=== PATIENT | male | born 1950 | race Caucasian/White ===

== ENCOUNTER 2023-09-01 09:30 | Inpatient (IN) ==
[2023-09-01 10:13] LABS: Basophils # (auto) 0.05 K/uL (0.00-0.20); Basophils % (auto) 0.6 %; Eosinophils % (auto) 4.5 %; Hemoglobin 14.4 g/dl (14.0-18.0); Immature Granulocytes # (auto) 0.02 K/uL (0.01-0.20); Immature Granulocytes % (auto) 0.2 %; Lymphocytes % (auto) 35.1 %; Mean Corpuscular Hemoglobin 28.9 pg (25.0-34.0); Mean Corpuscular Hgb Conc 33.5 g/dL (32.0-36.0); Mean Corpuscular Volume 86.3 fL (80.0-100.0); Mean Platelet Volume 9.8 fL (9.4-12.4); Monocytes # (auto) 0.54 K/uL (0.11-0.59); Monocytes % (auto) 6.1 %; Neutrophils # (auto) 4.72 K/uL (1.40-6.50); Neutrophils % (auto) 53.5 %; Platelet Count 186 K/uL (130-400); RDW Coefficient of Variation 12.9 % (11.5-14.5); RDW Standard Deviation 40.2 fL (36.4-46.3); Red Blood Count 4.98 M/uL (4.70-6.10); White Blood Count 8.83 K/ul (4.8-10.8)
[2023-09-01 10:28] LABS: Albumin Globulin Ratio 1.5 (0.9-2); Albumin Level 4.3 gm/dl (3.4-5.0); BUN Creatinine Ratio 19.6 (10-20); Bilirubin,Total 0.9 mg/dl (0.2-1.0); Calcium 9.6 mg/dl (8.6-10.3); Creatinine Clr Calc Pharmacy 69.1 ml/min; Est GFR (African American) 83.5 ml/min; Est GFR (Non-African American) 72.1 ml/min; Globulin 2.9 gm/dl (2.5-4.0); Potassium 3.6 mmol/L (3.5-5.1); Total Protein 7.2 gm/dl (6.0-8.3)
--- NOTE | 2023-09-01 10:35 | XRay Report ---
SINGLE VIEW CHEST CLINICAL HISTORY: Atypical chest pain FINDINGS: A PA chest radiograph is compared to study dated 02/20/2018. The cardiomediastinal silhouett e is unremarkable noting atherosclerotic calcification of the thoracic aorta. The lungs and pleural s paces are clear. No pneumothorax is seen. The skeletal structures are osteopenic. The bony thorax is grossly intact. Degenerative change is noted in the shoulders and spine. Cholecystectomy clips are se en in the right upper quadrant. IMPRESSION: No active disease in the chest. ACT 112: Negative or not required by law. Electronically signed by: Benton Schreiber M.D. 09/01/2023 10:34 AM
[2023-09-01 10:37] LABS: Troponin I High Sensitivity 85.8 pg/ml (0-20)
[2023-09-01 10:39] LABS: Partial Thromboplastin Time 28 Seconds (21-31); Prothrombin Time 11.2 Seconds (9.0-12.0)
[2023-09-01] MEDS: ASPIRIN CHEW 324 MG ONE (11:13)
[2023-09-01] MEDS: ASPIRIN CHEW 324 MG PO STA (11:16)
[2023-09-01] MEDS: NITROGLYCERIN SL 0.4 MG/TAB TAB SL STA (11:16)
[2023-09-01] MEDS: NITROGLYCERIN SL 0.4 MG/TAB TAB ONE (11:16)
[2023-09-01] MEDS: SODIUM CHLORIDE 0.9% 1,000 ML IV ONE (11:17)
--- NOTE | 2023-09-01 11:24 | History & Physical Report ---
Date of Service September 01, 2023 Assessment & Plan (1) NSTEMI (non-ST elevated myocardial infarction): Plan: -Admit to the PCU on tele and pulse oximetry -Currently stable, non-toxic appearing, and with mild pain -Presented to the ED with acute onset of left arm pain with radiation to the left chest/substernal region around 0830 this am while cleaning his home -No previous Cardia hx but does have a hx of HTN, hyperlipidemia and 25 pack year smoking hx -Initial high sen trop of 85, initial ECG on arrival with minimal ST depressions in the anterior and AVL leads -Repeat ECG after initial tx in the ED with improved ST depressions -S/P 324 mg Aspirin, 2 SL nitroglycerin tabs, and 1L NSS in the ED. -Will start 1 inch nitro paste with ongoing chest pain -Will start low dose, weight based heparin drip with bolus -Cardiology has been consulted, agrees with current management, will be down to see him shortly >Will likely be taken to the gold leaf laborer within the next few hours -Patient currently getting TTE, will follow results -Will continue to tren high sen trop, 2 hour repeat is in process -Will hod beta stacey at this time as he is currently bradycardic w/hr in the 40-50's -Will start statin this evening -Strict NPO until seen by Cardiology -Heparin drip for DVT PPX -AM CBC, CMP, mag, PT/INR/Fasting lipid panel, A1c (2) Chest pain: Plan: -Likely related to his NSTEMI -No focal findings to suggest musculoskeletal pain -Has not been tachycardic, hypotensive, or hypoxic to suggest PE, will hold off on CTA Chest for now -Continue current management per NSTEMI plan (3) HTN (hypertension): Plan: -Stable -Will hold spironolactone/HCTZ for now -Monitor BP while on nitroglycerin paste (4) Hypothyroidism: Plan: -Continue levothyroxine Plan The patient was discussed with Dr. Mccormick at the time of the admission History of Present Illness Chief Complaint: Left shoulder/chest pain Primary Care Provider: Rakesh Michele MD Ryne is a 73 year old male with a PMH significant for HTN, Hyperlipidemia, previous tobacco abuse, Guillain [place] Syndrome who presented to the [facility] ED on 09/01/23 with complaints of left chest/shoulder pain which began around 0830 this morning. On arrival to the ED the patient was noted to be hypertensive at 162/95 but was otherwise stable. Labs were significant for an initial high sen trop of 85. ECG shows mild ST segment depressions in the anterior leads. Prior to admission the patient was give 324 mg Aspirin and 2 doses of SL nitroglycerin. At the time of the exam the patient was sitting in bed in no acute distress with his bedside. He states that they were cleaning their house this am around 0830 when he developed sudden onset of left UE pain which radiated to the left chest and substernal region. Describes the pain as burning and an 8/10 when it initially started. Pain is currently a 2-3/10 after the second dose of nitroglycerin. Smoked 1PPD for 25 years, quit approximately 30 years ago. Denies alcohol use. Denies previous hx of heart disease but has significant Cardiac hx on both sides of his family. Does not believe that anyone in his family has passes from heart disease before the age of 50. Denies recent fever, chills, SOB, cough, hemoptysis, nausea, vomiting, abd pain, diarrhea, dysuria, hematuria, melena, LE swelling, and recent trauma. Denies previous hx of major bleeding. Is a full code, is his POA. Please refer to Dr Mccormick's attestation for any changes to the treatment plan Allergies Allergy/AdvReac Type Severity Reaction Status Date / Time tapentadol AdvReac Unknown feels hot Verified 01/23/20 08:37 Home Medications Medication Instructions Recorded Confirmed Type cholecalciferol (vitamin D3) 25 0 unit PO DAILY 02/21/18 09/01/23 History mcg (1,000 unit) capsule (Vitamin D3) aspirin 81 mg tablet,delayed 0 mg PO DAILY 02/22/18 09/01/23 History release albuterol sulfate 90 mcg/actuation 2 puff inhalation QID PRN SOB or 01/23/20 09/01/23 History aerosol inhaler (ProAir HFA) wheezing loratadine 10 mg capsule 0 mg PO DAILY 01/23/20 09/01/23 History propylene glycol 0.6 % eye drops 0 drp ophthalmic (eye) DAILY 01/23/20 09/01/23 History (Systane Balance) atorvastatin 20 mg tablet 20 mg PO HS 09/01/23 09/01/23 History levothyroxine 112 mcg tablet 112 mcg PO DAILYBB 09/01/23 09/01/23 History spironolactone 25 0.5 tab PO DAILY 09/01/23 09/01/23 History mg-hydrochlorothiazide 25 mg tablet triamcinolone acetonide 0.5 % 1 applic topical BID Legs 09/01/23 09/01/23 History topical ointment Past Med/Surg History Medical History (Updated 09/02/23 @ 00:04 by Dejan Bell) Migraine headache with aura FH: cholecystectomy Guillain-[place] Bilateral leg numbness Ambulatory dysfunction Sciatica DDD (degenerative disc disease) Back pain Prostate cancer Abdominal mass Surgical History H/O inguinal hernia repair H/O prostatectomy Family History Brother Diabetes Other Family history non-contributory Social History Smoking Status: Former smoker Second Hand Exposure: No; Do You Dip or Chew Tobacco: No; Tobacco Cessation Education Requested by Patient: No Hx Alcohol Use: No Hx Substance Use: No Preferred Language: Swedish Communication Ability: Effective Communication Ability Comment: poor reading ablitily, assisted by Manufacturing Assembler Required: No Beliefs That Will Affect Care: None marital status: Current Living Situation: Spouse current occupational status: retired Other Information That Helps Us Care for You: No Feels Safe at Home: Yes Safety Concerns: Feels Safe At This Time Assistive Devices: Denture - Upper, Denture - Lower and Glasses Physical Exam Physical Exam: Physical Exam: General: In no acute distress, stated age, well-nourished, good hygiene HEENT: Normocephalic, atraumatic, no scleral icterus, pupils around round, symmetrical, and reactive to light, moist mucus membranes, trachea midline, no thyromegaly Chest/Pulm: No respiratory distress, symmetrical chest expansion, clear breath sounds throughout Cardiac: RRR, no murmurs noted Abdomen: Negative for ascites and bruising, normoactive bowel sounds, soft, non-tender to palpation throughout Musculoskeletal: Symmetrical and without signs of acute trauma, upper and lower extremities with full ROM, no atrophy, spasticity, or flaccidity Extremities: Radial, dorsalis pedis, and posterior tibial pulses are intact and symmetrical, no edema noted in the BL LE's Skin: Warm, dry, no rashes , lesions, or scars noted Neuro: Alert and oriented to person, place, month, year, and president, no focal defects, no tremors noted Psych: No acute distress, calm and cooperative during the exam Results & Data Results & Data Vital Signs (Past 12 Hours) Vital Signs Temp Pulse Resp BP Pulse Ox O2 Del Method 09/01/23 09:41 36.7 C 61 15 162/95 H 98 Room Air Laboratory Results Abnormal lab results 09/01/23 Range/Units 09:55 Glucose 118 H (70-99(Fasting)) mg/dl Troponin I High Sens 85.8 H* (0-20) pg/ml Diagnostic Findings Chest X-Ray 09/01/23 09:45 SINGLE VIEW CHEST CLINICAL HISTORY: Atypical chest pain FINDINGS: A PA chest radiograph is compared to study dated 02/20/2018. The cardiomediastinal silhouette is unremarkable noting atherosclerotic calcification of the thoracic aorta. The lungs and pleural spaces are clear. No pneumothorax is seen. The skeletal structures are osteopenic. The bony thorax is grossly intact. Degenerative change is noted in the shoulders and spine. Cholecystectomy clips are seen in the right upper quadrant. IMPRESSION: No active disease in the chest. ACT 112: Negative or not required by law. Electronically signed by: Benton Schreiber M.D. 09/01/2023 10:34 AM ECG Additional Comments: Normal sinus rhythm with sinus arrhythmia Nonspecific ST abnormality Abnormal ECG When compared with ECG of 21-FEB-2018 12:34, Non-specific change in ST segment in Anterior leads Code Status & VTE Plan Code Status Full code VTE Prophylaxis Plan VTE Prophylaxis will be ordered: Yes Supervising Physician Co-Signing Physician Notes I personally saw and examined the patient. I verified all mac points and agree with Andrea Weeks PA-C with the following exceptions and/or additions: 73 year old presents to the ER with chest pain. Discussed care with Dr Marques and Dr Leone and given ongoing symptoms he was taken for cardiac catheterization O/E A&Ox3, HS RRR, no murmurs, Chest CTAB, Abdo SNT, mild left pronator drift, otherwise power 5/5 in all 4 extremities, generalize left upper extremity numbness, CN 2-> 12 intact A/P Chest pain / NSTEMI - given no definitive cause other than possible small diagonal on cardiac cath will get CT angiogram to rule out aortic dissection. Left arm pain and numbness - CT head not to rule out bleed. Suspect related to small vessel NSTEMI but since ongoing need to rule out hemorrhagic stroke. If ongoing tomorrow and no hemorrhagic stroke consider brain MRI PG Care Time/CCT Total # of Minutes Spent Total Time Spent with Patient: Total time spent is greater than 50% in coordination of care (as documented) at patient's floor/unit and/or counseling patient: Coding [place] [address] INT INP/OBS CARE 3/75MIN Patient Type Established Medical Decision Making High Complexity Diagnoses NSTEMI (non-ST elevated myocardial infarction) I21.4 Chest pain R07.9 HTN (hypertension) I10 Hypothyroidism E03.9
[2023-09-01] MEDS ORDERED: Heparin IV Adult Wt-Based Low-Dose w/ INITIAL Bolus Protocol IV SCH (11:25)
[2023-09-01] MEDS: NITROGLYCERIN 2% OINTMENT 30GM TUBE EXT SCH ×2 (11:32→18:17)
[2023-09-01] MEDS: HEPARIN SODIUM/DEXTROSE 25,000 UNITS/500 ML BAG IV SCH (12:20)
[2023-09-01] MEDS: HEPARIN SOD (PORCINE) 1000 UNIT/ML IV ONE (12:21)
--- NOTE | 2023-09-01 14:00 | XCELERA ---
[id number]
--- NOTE | 2023-09-01 14:23 | Pre Anesthesia Assessment ---
Date of Service September 01, 2023 Pre Sedation Assessment Vital Signs Temp Pulse Pulse Resp BP BP Pulse Ox 09/01/23 13:05 36.7 C 46 L 18 138/71 98 09/01/23 11:31 98 09/01/23 11:30 44 L 19 96 09/01/23 11:30 122/68 09/01/23 11:26 114/59 L 09/01/23 11:26 48 L 16 98 09/01/23 11:20 49 L 13 95 09/01/23 11:16 55 L 19 96 09/01/23 11:15 124/70 09/01/23 09:41 36.7 C 61 15 162/95 H 98 O2 Del Method 09/01/23 13:05 Room Air 09/01/23 11:31 Room Air 09/01/23 11:30 09/01/23 11:30 09/01/23 11:26 09/01/23 11:26 09/01/23 11:20 09/01/23 11:16 09/01/23 11:15 09/01/23 09:41 Room Air Cardiovascular + regular rhythm and + bradycardic Respiratory + respiratory effort normal Pre-Sedation Airway Assessment Smoking Status: Former smoker Hx Sleep Apnea: No Hx Difficult Intubation: No Short, Thick Neck: No Thyromental Distance: > or= 3.5 Finger Breadths Oral Cavity: + WNL Mallampati Class: III ASA: ASA3 NPO Status Date of Last Intake of Fluids: 09/01/23 Time of Last Intake of Fluids: 08:00 Last Oral Intake of Fluids Comment: breakfast Date of Last Intake of Solid Food: 09/01/23 Time of Last Intake of Solid Foods: 08:00 Procedure Planning Contraindications for Sedation: none Current Medications Reviewed: Yes Notes The planned sedation has been discussed with the patient. Informed Consent was obtained. I have identified the patient, determined the appropriateness of sedation and have assessed the patient immediately prior to the procedure. All medicine(s) and interventions are by my order.
--- NOTE | 2023-09-01 14:23 | Cardiology Consultation ---
Date of Consultation September 01, 2023 Assessment & Plan (1) NSTEMI (non-ST elevated myocardial infarction): (2) Chest pain: (3) HTN (hypertension): (4) Sinus bradycardia: Plan 1. NSTEMI: The patient did have her elevation in his cardiac biomarkers consistent with an NSTEMI. His symptoms are certainly concerning and he is in a demographic who is likely to have some coronary disease. As such, he was advised to consider coronary angiography for definitive evaluation. I discussed the risks and benefits with the patient and his in were willing to proceed. Currently on heparin infusion. He has received aspirin. Beta-stacey relatively contraindicated due to his relative bradycardia. 2. Chest pain: Some of the symptoms are atypical in character. However, as noted above he is in a demographic who is likely to have coronary disease. Given the objective findings think it is reasonable to proceed with coronary angiography. Alternative diagnosis would be gastrointestinal, musculoskeletal or neurologic. 3. Sinus bradycardia: Longstanding a well documented. No overt symptoms. Good exercise tolerance without limitation and no history of dizziness or syncope. No indication for permanent pacemaker. History of Present Illness Reason for Consultation: Chest pain, elevated troponin Requesting Physician: Anny Attending Physician: Rakesh Mccormick MD History of Present Illness The patient is a 73-year-old gentleman with a history of hypertension, prior tobacco use and Guillain-[place] syndrome who presented to the emergency room with symptoms of left arm and chest discomfort. Patient states he was doing his usual work this morning including vacuuming at home when he began to experience these symptoms. He described as a sharp and stabbing sensation that was in the left arm and then across the precordium. Did not appear to be associated with diaphoresis, shortness of breath or dizziness. Did not radiate to the back. His was concerned about the symptoms and he was brought to the emergency room for evaluation. He was given some sublingual nitroglycerin in the emergency room which improved but did not alleviate his symptoms entirely. In general the patient is an active individual. He is accustomed exercising regularly. Did not report any limiting symptoms such as dyspnea or exertional chest pain. He has not had any sense of palpitation. He is aware of a slow heartbeat but this has never caused him symptoms. No history of syncope. At the time of my interview the patient continues to have 2/10 chest pain Allergies Allergy/AdvReac Type Severity Reaction Status Date / Time tapentadol AdvReac Unknown feels hot Verified 01/23/20 08:37 Home Medications Medication Instructions Recorded Confirmed Type cholecalciferol (vitamin D3) 25 0 unit PO DAILY 02/21/18 09/01/23 History mcg (1,000 unit) capsule (Vitamin D3) aspirin 81 mg tablet,delayed 0 mg PO DAILY 02/22/18 09/01/23 History release albuterol sulfate 90 mcg/actuation 2 puff inhalation QID PRN SOB or 01/23/20 09/01/23 History aerosol inhaler (ProAir HFA) wheezing loratadine 10 mg capsule 0 mg PO DAILY 01/23/20 09/01/23 History propylene glycol 0.6 % eye drops 0 drp ophthalmic (eye) DAILY 01/23/20 09/01/23 History (Systane Balance) atorvastatin 20 mg tablet 20 mg PO HS 09/01/23 09/01/23 History levothyroxine 112 mcg tablet 112 mcg PO DAILYBB 09/01/23 09/01/23 History spironolactone 25 0.5 tab PO DAILY 09/01/23 09/01/23 History mg-hydrochlorothiazide 25 mg tablet triamcinolone acetonide 0.5 % 1 applic topical BID Legs 09/01/23 09/01/23 History topical ointment Patient History Medical History (Updated 09/01/23 @ 15:32 by Toribio Marques MD) Migraine headache with aura FH: cholecystectomy Guillain-[place] Bilateral leg numbness Ambulatory dysfunction Sciatica DDD (degenerative disc disease) Back pain Prostate cancer Abdominal mass Surgical History H/O inguinal hernia repair H/O prostatectomy Family History Brother Diabetes Other Family history non-contributory Social History Smoking Status: Former smoker Second Hand Exposure: No; Do You Dip or Chew Tobacco: No; Tobacco Cessation Education Requested by Patient: No Hx Alcohol Use: No Hx Substance Use: No Preferred Language: Indonesian Communication Ability: Effective Communication Ability Comment: poor reading ablitily, assisted by Kaiako Kohanga Reo Required: No Beliefs That Will Affect Care: None marital status: Current Living Situation: Spouse current occupational status: retired Other Information That Helps Us Care for You: No Feels Safe at Home: Yes Safety Concerns: Feels Safe At This Time Assistive Devices: Denture - Upper, Denture - Lower and Glasses Review of Systems Review of Systems: Per HPI. Perhaps some mild pleuritic component to his chest pain Physical Exam Physical Exam: The patient is alert and oriented. Mood and affect appeared normal. He answered all questions appropriately. HEENT: Pupils are equal and reactive to light and accommodation. Extraocular movements are intact. The sclerae are anicteric. Neuro: Cranial nerves intact Lungs: Clear to auscultation bilaterally. He has good air movement without use of accessory muscles. No rales wheezes or rhonchi. Chest: No tenderness to palpation. Cardiac: Heart demonstrates a regular rate and rhythm. Normal S1 and S2. No murmurs on examination. Pulses: The patient has palpable radial pulses bilaterally that are equal in intensity Extremities: There was no evidence of hypoperfusion. There is no cyanosis or clubbing. There is no edema. Skin: I did not appreciate any rashes on examination today. Results & Data Vital Signs (Past 12 Hours) Vital Signs Temp Pulse Pulse Resp BP BP Pulse Ox 09/01/23 13:05 36.7 C 46 L 18 138/71 98 09/01/23 11:31 98 09/01/23 11:30 44 L 19 96 09/01/23 11:30 122/68 09/01/23 11:26 114/59 L 09/01/23 11:26 48 L 16 98 09/01/23 11:20 49 L 13 95 09/01/23 11:16 55 L 19 96 09/01/23 11:15 124/70 09/01/23 09:41 36.7 C 61 15 162/95 H 98 O2 Del Method 09/01/23 13:05 Room Air 09/01/23 11:31 Room Air 09/01/23 11:30 09/01/23 11:30 09/01/23 11:26 09/01/23 11:26 09/01/23 11:20 09/01/23 11:16 09/01/23 11:15 09/01/23 09:41 Room Air Laboratory Results Abnormal Lab Results 09/01/23 09/01/23 09:55 11:36 WBC 8.83 RBC 4.98 Hgb 14.4 Hct 43.0 MCV 86.3 MCH 28.9 MCHC 33.5 RDW Std Deviation 40.2 RDW Coeff of Leroy 12.9 Plt Count 186 MPV 9.8 Immature Gran % (Auto) 0.2 Neut % (Auto) 53.5 Lymph % (Auto) 35.1 [place] % (Auto) 6.1 Eos % (Auto) 4.5 Baso % (Auto) 0.6 Neut # (Auto) 4.72 Lymph # (Auto) 3.10 [place] # (Auto) 0.54 Eos # (Auto) 0.40 Baso # (Auto) 0.05 Immature Gran # (Auto) 0.02 PT 11.2 INR 1.0 APTT 28 PTT Ratio 1.0 Sodium 140 Potassium 3.6 Chloride 103 Carbon Dioxide 31 Anion Gap 6 BUN 20 Creatinine 1.02 Est Cr Clr Drug Dosing 69.1 Est GFR ( Amer) 83.5 Est GFR (Non-Af Amer) 72.1 BUN/Creatinine Ratio 19.6 Glucose 118 H Calcium 9.6 Total Bilirubin 0.9 AST 21 ALT 21 Alkaline Phosphatase 60 Troponin I High Sens 85.8 H* 2324.9 H* D Total Protein 7.2 Albumin 4.3 Globulin 2.9 Albumin/Globulin Ratio 1.5 Diagnostic Findings Chest x-ray obtained the time of admission did not reveal any acute cardiopulmonary process Echocardiogram performed 09/01/2023: Normal LV systolic function wall motion. No significant valvular heart disease. ECG Additional Comments: EKG obtained the time admission revealed sinus bradycardia, otherwise unremarkable. PG Care Time/CCT Total # of Minutes Spent Total Time Spent with Patient: Total time spent is greater than 50% in coordination of care (as documented) at patient's floor/unit and/or counseling patient: Coding Level of Care Code 45318 INT INP/OBS CARE 3/75MIN Diagnoses NSTEMI (non-ST elevated myocardial infarction) I21.4 Chest pain R07.9 HTN (hypertension) I10 Sinus bradycardia R00.1
[2023-09-01] MEDS: fentaNYL citrate PF 100 MCG/2 ML VIAL ONE (14:52)
[2023-09-01] MEDS: HEPARIN (PORCINE) 1000 UNIT/ML 10 ML (CATH LAB USE ONLY) ONE (14:52)
[2023-09-01] MEDS: MIDAZOLAM HCL 1 MG/ML 2ML VIAL ONE (14:53)
[2023-09-01] MEDS: niCARdipine HCL INJ 2.5 MG/ML 10 ML AMP ONE (14:53)
[2023-09-01] MEDS: NITROGLYCERIN/D5W 100MCG/ML 20ML SYR ONE (14:53)
--- NOTE | 2023-09-01 14:53 | Cardiac Catheterization ---
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 Cardiac Status Clinical evaluation leading to the procedure CAD Presenation: Non STEMI Diagnostic Physicians Name: Toribio Marques MD Closure Device Recommendations: Medical Therapy and/or Counseling Cardiac Cath Procedure Full Procedure Date September 01, 2023 Pre-Procedure Diagnosis Pre-Procedure Diagnosis: Non STEMI AUC Score AUC Score: 7 Post-Procedure Diagnosis Post-Procedure Diagnosis: Mild CAD Procedure(s) Performed Procedure(s) Performed: Coronary Angiography and Left Heart Cath Agate Setter Toribio Marques MD Master Tax Advisor(s) none Estimated Blood Loss Estimated Blood Loss: 7cc Medication(s) Medication(s): Fentanyl, Heparin, Lidocaine 1%, Nicardipine, Nitroglycerin and Versed Summary of Findings Procedure performed: Left heart catheterization, selective coronary angiography Staff deblocker: Toribio Marques MD Indication: The patient is a 73-year-old gentleman who presents to the hospital with symptoms of chest discomfort and had elevated cardiac biomarkers. As such as will be a good candidate for urgent coronary angiography. Procedure in detail: The patient was informed of the risks benefits and alternatives to the intended procedure, he understood such and wished to proceed. He was taken to the cardiac catheterization suite in a fasting state. Conscious sedation was administered per protocol and the patient was monitored electrocardiographically throughout today's procedure. The right wrist area was prepped and draped in usual sterile fashion. This area was anesthetized using subcutaneous administration of a lidocaine solution. The right radial artery was then accessed using Seldinger technique, and a arterial sheath was placed at this site over a guidewire. The sheath was used to facilitate passage of the cardiac catheter for coronary angiography and left heart catheterization. Coronary angiogram was then obtained in multiple orthogonal views prior to removal of the catheter. At the conclusion of the procedure the sheath was removed and hemostasis was achieved at the access site using manual pressure. The patient tolerated procedure well, there were no immediate complications. Equipment used: 5 Welsh tiger 4 Findings: Coronary angiography Left main: Left main was very short and there was almost dual ostial physiology. No disease in this segment. Left anterior descending: Left anterior descending was a somewhat tortuous vessel. It produced a large 1st diagonal branch in a small 2nd diagonal branch. No obstructive disease in this vessel. Left circumflex: Left circumflex was a dominant vessel. It produced a large 1st obtuse marginal, a large 2nd obtuse marginal and 2 smaller additional obtuse marginal branches. There did appear to be some very distal disease in the OM2. Right coronary: Right coronary was a nondominant vessel without disease Impression Left dominant coronary system Essentially normal coronary arteries with no obstructive disease with the exception of a very small distal portion of OM2. Normal left ventricular filling pressures Hemodynamics Rest Ao:: 95/61 mm of mercury Final Ao: 108/66 mm Hg LV: 103/0 mm of mercury Left ventricular end-diastolic pressure 9 mm of mercury Recommendations Recommendations: Medical Therapy and/or Counseling Specimens Specimens: None Radiation Exposure (mGy) 1047 Contrast (mls) 50 Procedural Complication(s) None Disposition PCU I attest to the content of the Intraoperative Record and any orders documented therein. Any exceptions are noted below. [facility] Card Cath Procedure Codes Cardiac Catheterization Procedure 1: Cardiovascular Cath Procedures: 87179 Coronaries and LHC (+/-LV) Moderate Sedation Procedure 1: Sedation/Anesthesia: 45830 Mod Sedation by the same physician;Init15 Min Child Age 5 & Up Procedure 2: Sedation/Anesthesia: 59462 Mod Sedation by the same physician; Ea Gigancaghh93 Minutes PG Care Time/CCT Total # of Minutes Spent Total Time Spent with Patient: Total time spent is greater than 50% in coordination of care (as documented) at patient's floor/unit and/or counseling patient:
--- NOTE | 2023-09-01 14:53 | Post Anesthesia Assessment ---
Date of Service September 01, 2023 Post Sedation Assessment Vital Signs Temp Pulse Pulse Resp BP BP Pulse Ox 09/01/23 13:05 36.7 C 46 L 18 138/71 98 09/01/23 11:31 98 09/01/23 11:30 44 L 19 96 09/01/23 11:30 122/68 09/01/23 11:26 114/59 L 09/01/23 11:26 48 L 16 98 09/01/23 11:20 49 L 13 95 09/01/23 11:16 55 L 19 96 09/01/23 11:15 124/70 09/01/23 09:41 36.7 C 61 15 162/95 H 98 O2 Del Method 09/01/23 13:05 Room Air 09/01/23 11:31 Room Air 09/01/23 11:30 09/01/23 11:30 09/01/23 11:26 09/01/23 11:26 09/01/23 11:20 09/01/23 11:16 09/01/23 11:15 09/01/23 09:41 Room Air Recovery Score Activity: Moves 4 extremities Respiration: Deep Breath/Cough Circulation: +/-20% PreAnes Value Consciousness: Fully Awake Oxygen Saturation: > 92% On Room Air Discharge Sedation Level of Care: Fast Track Phase II Post Sedation Plan On clinical assessment, the patient appears to have tolerated the sedation without complications. Patient is recovering as anticipated. Patient will continue to be monitored by nursing and may be discharged when sedation discharge criteria are met per below protocol. Upon Completions of procedure up to 15 minutes continue every 5 minute vital signs and the P.A.R. score; then discharge to a Phase I or Fast Track to Phase II per the following guidelines: * Discharge Patient to appropriate Phase II area if PAR is 8 or greater or return to pre- procedure baseline. The post - procedure orders will be as directed. * If PAR score is less than 8 or not return to pre-procedure baseline then patient will follow Phase I monitoring till PAR is reached for Phase II. The Phase I may be done in procedure room or may call to secure a Phase I area. * If naloxone or flumazenil are used for reversal, hold in Phase I for continued monitoring from when last reversal dose was given for a minimum of 60 minutes or longer pending the nurse and/or physician discretion of patient condition before discharge to Phase II. Please call the Sedation Physician to re-evaluate and complete post-note for discharge to Phase II area. Do NOT discharge from procedure sedation or Phase 1 until post- sedation evaluation note is complete by procedure /sedation MD Sedation Discharge Instructions to be given to the patient at discharge to home.
[2023-09-01] MEDS: CLOPIDOGREL BISULFATE 300 MG TAB PO ONE (16:44)
--- NOTE | 2023-09-01 16:47 | Electrocardiogram Report ---
Test Reason : Blood Pressure : / mmHG Vent. Rate : 065 BPM Atrial Rate : 065 BPM P-R Int : 176 ms QRS Dur : 086 ms QT Int : 436 ms P-R-T Axes : 047 -05 059 degrees QTc Int : 453 ms Normal sinus rhythm with sinus arrhythmia Nonspecific ST abnormality Abnormal ECG When compared with ECG of 21-FEB-2018 12:34, Non-specific change in ST segment in Anterior leads Confirmed by Toribio Marques ([id number]) on 09/01/2023 4:46:31 PM Referred By: Confirmed By:Nasir Marques
--- NOTE | 2023-09-01 16:47 | Electrocardiogram Report ---
Test Reason : Blood Pressure : / mmHG Vent. Rate : 047 BPM Atrial Rate : 047 BPM P-R Int : 194 ms QRS Dur : 088 ms QT Int : 456 ms P-R-T Axes : 047 -11 037 degrees QTc Int : 403 ms Sinus bradycardia Otherwise normal ECG When compared with ECG of 01-SEP-2023 09:53, (unconfirmed) No significant change was found Confirmed by Toribio Marques ([id number]) on 09/01/2023 4:47:00 PM Referred By: Rakesh Mccormick Confirmed By:Nasir Marques
[2023-09-01] MEDS: OPTIRAY 320 125ml IV ONE (18:00)
--- NOTE | 2023-09-01 18:13 | CT Scan Report ---
CT SCAN OF THE BRAIN WITHOUT IV CONTRAST CLINICAL HISTORY: Left upper extremity numbness. COMPARISON STUDY: CT of the brain dated 02/20/2018. TECHNIQUE: Unenhanced axial CT scan of the brain is performed from the vertex to the skull base. A do se lowering technique was utilized adhering to the principles of ALARA. FINDINGS: Brain parenchyma: There is age-related involutional change noting mild subcortical and periventricula r microangiopathic disease. There is no hemorrhage, mass effect, or evidence of acute territorial isc hemia by CT criteria. Dixon-white matter differentiation is preserved. No extra-axial fluid collection is seen. Ventricles, sulci, cisterns: Prominent secondary to involutional change. Intracranial vasculature: There is atherosclerotic calcification of the cavernous carotid and vertebr al arteries. Calvarium: Unremarkable. Sinuses and mastoids: There is evidence of previous basal sinus surgery. Trace mucosal thickening is noted in the ethmoid cavity. The mastoid air cells are well pneumatized. Orbits: The bony orbits are grossly intact. IMPRESSION: There is no hemorrhage, mass effect, or evidence of acute territorial ischemia by CT jerry burdick. ACT 112: Negative or not required by law. Electronically signed by: Benton Schreiber M.D. 09/01/2023 6:11 PM
--- NOTE | 2023-09-01 19:03 | Emergency Department Note ---
History of Present Illness General Chief Complaint: Cardiac Assessment Stated Complaint: PAIN LEFT SHOULDER Time Seen by Provider: 09/01/23 11:04 History of Present Illness Provider Complaint: chest pain Time: 08:30 Duration: constant Onset: during rest Pain Location: substernal and left chest Pain Radiation: LUE Maximum Pain Intensity: 5 Current Pain Intensity: 5 Quality: + heaviness and + other (Numbness) Relieved By: + nothing Exacerbated By: + nothing Context: no recent illness, no recent surgery, no recent immobilization, no recent travel, no trauma/injury, no new medications or no history of DVT/PE Associated symptoms: no nausea, no vomiting, no diaphoresis, no dyspnea, no syncope, no palpitations, no fever, no cough or no leg swelling Home Medications Medication Instructions Recorded Confirmed Type cholecalciferol (vitamin D3) 25 0 unit PO DAILY 02/21/18 09/01/23 History mcg (1,000 unit) capsule (Vitamin D3) aspirin 81 mg tablet,delayed 0 mg PO DAILY 02/22/18 09/01/23 History release albuterol sulfate 90 mcg/actuation 2 puff inhalation QID PRN SOB or 01/23/20 09/01/23 History aerosol inhaler (ProAir HFA) wheezing loratadine 10 mg capsule 0 mg PO DAILY 01/23/20 09/01/23 History propylene glycol 0.6 % eye drops 0 drp ophthalmic (eye) DAILY 01/23/20 09/01/23 History (Systane Balance) atorvastatin 20 mg tablet 20 mg PO HS 09/01/23 09/01/23 History levothyroxine 112 mcg tablet 112 mcg PO DAILYBB 09/01/23 09/01/23 History spironolactone 25 0.5 tab PO DAILY 09/01/23 09/01/23 History mg-hydrochlorothiazide 25 mg tablet triamcinolone acetonide 0.5 % 1 applic topical BID Legs 09/01/23 09/01/23 History topical ointment Allergies Allergy/AdvReac Type Severity Reaction Status Date / Time tapentadol AdvReac Unknown feels hot Verified 01/23/20 08:37 Past Med/Surg History Medical History (Updated 09/01/23 @ 19:03 by Danny Gregg MD) Migraine headache with aura FH: cholecystectomy Guill[place] Bilateral leg numbness Ambulatory dysfunction Sciatica DDD (degenerative disc disease) Back pain Prostate cancer Abdominal mass Surgical History H/O inguinal hernia repair H/O prostatectomy Family History Brother Diabetes Other Family history non-contributory Social History Smoking Status: Former smoker Second Hand Exposure: No; Do You Dip or Chew Tobacco: No; Tobacco Cessation Education Requested by Patient: No Hx Alcohol Use: No Hx Substance Use: No Preferred Language: [place]ian Communication Ability: Effective Communication Ability Comment: poor reading ablitily, assisted by Facepiece Line Supervisor Required: No Beliefs That Will Affect Care: None marital status: Current Living Situation: Spouse current occupational status: retired Other Information That Helps Us Care for You: No Feels Safe at Home: Yes Safety Concerns: Feels Safe At This Time Assistive Devices: Denture - Upper, Denture - Lower and Glasses Physical Exam Vital Signs Vital Signs - 24 hr 09/01/23 09:41 09/01/23 11:15 09/01/23 11:16 Temperature 36.7 C Temperature Source Temporal Artery Scan Pulse Rate 61 55 L Pulse Rate from SpO2 Sensor 53 L Respiratory Rate 15 19 Blood Pressure 162/95 H 124/70 Blood Pressure Mean 117 107 Pulse Oximetry 98 96 Oxygen Delivery Method Room Air Sepsis Recent Fever Within 48 Hours No Sepsis New/Unexplained Change in Mental Status N/A Sepsis Action Taken by Nursing No Action Required 09/01/23 11:20 Temperature Temperature Source Pulse Rate 49 L Pulse Rate from SpO2 Sensor 49 L Respiratory Rate 13 Blood Pressure Blood Pressure Mean Pulse Oximetry 95 Oxygen Delivery Method Sepsis Recent Fever Within 48 Hours Sepsis New/Unexplained Change in Mental Status Sepsis Action Taken by Nursing Physical Exam GENERAL: oriented to person, place, and time. appears well-developed and well- nourished. HENT: Exam performed. - Head: Normocephalic and atraumatic. EYES: Conjunctivae and EOM are normal. Right eye exhibits no discharge. Left eye exhibits no discharge. No scleral icterus. NECK: Normal range of motion. Neck supple. No JVD present. CV: Normal rate, regular rhythm, normal heart sounds and intact distal pulses. There is no peripheral edema. Palpable radial pulses bue. PULM/CHEST: Effort normal and breath sounds normal. No respiratory distress. No stridor. no wheezes. no rales. ABD: The abdomen is soft. There is no tenderness. NEURO: Motor and sensation grossly intact. SKIN: Skin is warm and dry. He is not diaphoretic. PSYCH: normal mood and affect. Behavior is normal. Judgment and thought content normal. Course Course 1104: The patient was evaluated in room !0. A complete history and physical exam was performed Cardiac monitoring: An order was placed for continuous cardiac monitoring. The monitor shows a rate of 60 with sinus rhythm interpreted by me Patient was seen during a time of extreme volume and extreme acuity. Nursing triage protocols were initiated labs and imaging was conducted by protocol in the triage area. Troponin mildly elevated. EKG showed ST depression in leads V2 and T wave inversion in lead aVL. No significant ST elevation. Patient treated with aspirin and sublingual nitroglycerin. 1111: Patient reports his chest pain has slightly improved with sublingual nitroglycerin. Repeat sublingual nitroglycerin will be ordered for the patient [facility]. Administered Medications Heparin Sodium/Dextrose (Heparin Sodium/Dextrose) 25,000 units in 500 mls @ 18 mls/hr IV .Q24H [facility]; Protocol Stop: 10/01/23 11:44 Last Titration: 09/01/23 18:15 Dose: 900 units/hr, 18 mls/hr Documented By: FANNY Co-signed By: YOKASTA Titration: 09/01/23 14:06 Dose: 0 units/hr, 0 mls/hr Documented By: FANNY Co-signed By: YOKASTA Admin: 09/01/23 12:20 Dose: 900 units/hr, 18 mls/hr Documented By: ACC Co-signed By: ELYSE Nitroglycerin (Nitroglycerin 2% Ointment 30gm Tube) 2 inch EXT Q6H INDERJIT Stop: 10/01/23 17:59 Last Admin: 09/01/23 18:17 Dose: 2 inch Documented By: FANNY Discontinued Medications Aspirin (Aspirin Chew 324 Mg) Confirm Administered Dose 324 mg .ROUTE .STK-MED ONE Stop: 09/01/23 11:12 Last Admin: 09/01/23 11:13 Dose: 324 mg Documented By: ACC Aspirin (Aspirin Chew 324 Mg) 324 mg PO NOW STA Stop: 09/01/23 11:14 Last Admin: 04/18/24 11:16 Dose: Not Given Documented By: ACC Clopidogrel Bisulfate (Clopidogrel Bisulfate 300 Mg Tab) 300 mg PO NOW ONE Stop: 09/01/23 15:28 Last Admin: 09/01/23 16:44 Dose: 300 mg Documented By: FANNY Fentanyl Citrate (Fentanyl Citrate Pf 100 Mcg/2 Ml Vial) Confirm Administered Dose 100 mcg .ROUTE .STK-MED ONE Stop: 09/01/23 13:40 Last Increment: 09/01/23 14:52 Dose: 50 mcg Documented By: DINAH Heparin Sodium (Porcine) (Heparin Sod (Porcine) 1000 Unit/Ml) 4,000 units IV NOW ONE Stop: 09/01/23 11:40 Last Admin: 09/01/23 12:21 Dose: 4,000 units Documented By: ACC Co-signed By: ELYSE Heparin Sodium (Porcine) (Heparin (Porcine) 1000 Unit/Ml 10 Ml (Pmo Lead Use Only)) Confirm Administered Dose 10,000 units .ROUTE .STK-MED ONE Stop: 09/01/23 13:40 Last Admin: 09/01/23 14:52 Dose: 1,000 units Documented By: DINAH Heparin Sodium/Sodium Chloride (Heparin In Nss Infusion 1000 Unit/500 Ml (2 U/Ml) Bag) Confirm Administered Dose 3,000 units IV .STK-MED ONE Stop: 09/01/23 13:40 Last Admin: 09/01/23 14:52 Dose: 3,000 units Documented By: PROJECT ENGINEER Sodium Chloride (Nss) 1,000 mls @ 999 mls/hr IV .Q1H1M ONE Stop: 09/01/23 12:13 Last Infusion: 09/01/23 16:18 Dose: Infused Documented By: Admin: 09/01/23 11:17 Dose: 999 mls/hr Documented By: ACC Ioversol (Optiray 320 125ml) 119 ml IV ONCE ONE Stop: 09/01/23 18:01 Last Admin: 09/01/23 18:00 Dose: 119 ml Documented By: SAMIA Midazolam HCl (Midazolam Hcl 1 Mg/Ml 2ml Vial) Confirm Administered Dose 2 mg .ROUTE .STK-MED ONE Stop: 09/01/23 13:40 Last Admin: 09/01/23 14:53 Dose: 2 mg Documented By: DINAH Nicardipine HCl (Nicardipine Hcl Inj 2.5 Mg/Ml 10 Ml Amp) Confirm Administered Dose 25 mg .ROUTE .STK-MED ONE Stop: 09/01/23 13:40 Last Admin: 09/01/23 14:53 Dose: 25 mg Documented By: PROJECT ENGINEER Nitroglycerin (Nitroglycerin Sl 0.4 Mg/Tab Tab) Confirm Administered Dose 0.4 mg .ROUTE .STK-MED ONE Stop: 09/01/23 11:12 Last Admin: 09/01/23 11:16 Dose: 0.4 mg Documented By: ACC Nitroglycerin (Nitroglycerin Sl 0.4 Mg/Tab Tab) 0.4 mg SL NOW STA Stop: 09/01/23 11:14 Last Admin: 09/01/23 11:23 Dose: 0.4 mg Documented By: ACC Nitroglycerin (Nitroglycerin 2% Ointment 30gm Tube) 1 inch EXT Q6H INDERJIT Stop: 10/01/23 11:59 Last Admin: 09/01/23 11:32 Dose: 1 inch Documented By: ACC Nitroglycerin/Dextrose (Nitroglycerin/D5w 100mcg/Ml 20ml Syr) Confirm Administered Dose 2,000 mcg .ROUTE .STK-MED ONE Stop: 09/01/23 13:41 Last Admin: 09/01/23 14:53 Dose: 2,000 mcg Documented By: PROJECT ENGINEER Medical Decision Making Laboratory Data Attestation: I reviewed the patient's lab results. 09/01/23 09:55 09/01/23 09:55 Labs: Lab Results 09/01/23 Range/Units 09:55 WBC 8.83 (4.8-10.8) K/ul RBC 4.98 (4.70-6.10) M/uL Hgb 14.4 (14.0-18.0) g/dl Hct 43.0 (42.0-52.0) % MCV 86.3 (80.0-100.0) fL MCH 28.9 (25.0-34.0) pg MCHC 33.5 (32.0-36.0) g/dL RDW Std Deviation 40.2 (36.4-46.3) fL RDW Coeff of Leroy 12.9 (11.5-14.5) % Plt Count 186 (130-400) K/uL MPV 9.8 (9.4-12.4) fL Immature Gran % (Auto) 0.2 % Neut % (Auto) 53.5 % Lymph % (Auto) 35.1 % Beckham % (Auto) 6.1 % Eos % (Auto) 4.5 % Baso % (Auto) 0.6 % Neut # (Auto) 4.72 (1.40-6.50) K/uL Lymph # (Auto) 3.10 (1.20-3.40) K/uL Beckham # (Auto) 0.54 (0.11-0.59) K/uL Eos # (Auto) 0.40 (0.00-0.50) K/uL Baso # (Auto) 0.05 (0.00-0.20) K/uL Immature Gran # (Auto) 0.02 (0.01-0.20) K/uL PT 11.2 (9.0-12.0) Seconds INR 1.0 (0.9-1.1) APTT 28 (21-31) Seconds PTT Ratio 1.0 Sodium 140 (136-145) mmol/L Potassium 3.6 (3.5-5.1) mmol/L Chloride 103 (98-107) mmol/L Carbon Dioxide 31 (21-32) mmol/L Anion Gap 6 (3-11) BUN 20 (6-23) mg/dl Creatinine 1.02 (0.6-1.4) mg/dl Est Cr Clr Drug Dosing 69.1 ml/min Est GFR ( Amer) 83.5 ml/min Est GFR (Non-Af Amer) 72.1 ml/min BUN/Creatinine Ratio 19.6 (10-20) Glucose 118 H (70-99(Fasting)) mg/dl Calcium 9.6 (8.6-10.3) mg/dl Total Bilirubin 0.9 (0.2-1.0) mg/dl AST 21 (13-39) U/L ALT 21 (7-52) U/L Alkaline Phosphatase 60 (34-104) U/L Troponin I High Sens 85.8 H* (0-20) pg/ml Total Protein 7.2 (6.0-8.3) gm/dl Albumin 4.3 (3.4-5.0) gm/dl Globulin 2.9 (2.5-4.0) gm/dl Albumin/Globulin Ratio 1.5 (0.9-2) Imaging Data Chest x-ray: Attestation: I personally reviewed and interpreted this imaging study as follows: My impression: Chest x-ray negative. Airway clear. No pneumothorax. No consolidation. No cardiomegaly or cephalization.. No free air under the diaphragm. No fractures of the skeletal structures. Radiologist's impression: Chest X-Ray 09/01/23 09:45 SINGLE VIEW CHEST CLINICAL HISTORY: Atypical chest pain FINDINGS: A PA chest radiograph is compared to study dated 02/20/2018. The cardiomediastinal silhouette is unremarkable noting atherosclerotic calcification of the thoracic aorta. The lungs and pleural spaces are clear. No pneumothorax is seen. The skeletal structures are osteopenic. The bony thorax is grossly intact. Degenerative change is noted in the shoulders and spine. Cholecystectomy clips are seen in the right upper quadrant. IMPRESSION: No active disease in the chest. ACT 112: Negative or not required by law. Electronically signed by: Benton Schreiber M.D. 09/01/2023 10:34 AM ECG Data Attestation: I personally reviewed and interpreted this ECG as follows: Additional Comments: EKG #1 at 0953: Sinus rhythm with a rate of 65. ID QRS and QTc intervals within normal limits. ST depression in lead V2. T wave inversion lead aVL only. EKG #2 at 1111: Sinus rhythm with a rate of 47. ID QRS and QTc intervals within normal limits. No ST elevation or ST depression. T wave inversion and ST depression there were the previous EKG appeared to have improved MDM Narrative 1104: The patient was evaluated in room !0. A complete history and physical exam was performed Cardiac monitoring: An order was placed for continuous cardiac monitoring. The monitor shows a rate of 60 with sinus rhythm interpreted by me Patient was seen during a time of extreme volume and extreme acuity. Nursing triage protocols were initiated labs and imaging was conducted by protocol in the triage area. Troponin mildly elevated. EKG showed ST depression in leads V2 and T wave inversion in lead aVL. No significant ST elevation. Patient treated with aspirin and sublingual nitroglycerin. 1111: Patient reports his chest pain has slightly improved with sublingual nitroglycerin. Repeat sublingual nitroglycerin will be ordered for the patient [facility] Impression & Plan NSTEMI (non-ST elevated myocardial infarction) Discharge Plan Visit Data Chief Complaint: Cardiac Assessment Stated Complaint: PAIN LEFT SHOULDER ED Provider: Danny Gregg Discharge Problem: NSTEMI (non-ST elevated myocardial infarction) Patient Disposition: Admitted As Inpatient Discharge Instructions Interventions: ED Discharge Assessment Last Done: 09/01/23 12:17
--- NOTE | 2023-09-01 19:16 | CT Scan Report ---
CT ANGIOGRAM OF THE CHEST COMBO CLINICAL HISTORY: Atypical chest pain. COMPARISON STUDY: Chest x-ray dated 09/01/2023. TECHNIQUE: Before and following the IV administration of 119 cc of Optiray 320, CT angiogram of the c hest was performed from the thoracic inlet to the upper abdomen utilizing the dissection protocol. Im ages are reviewed in the axial, sagittal, and coronal planes. 3-D MIPS images are created and assesse d. IV contrast was administered without complication. A dose lowering technique was utilized adherin g to the principles of ALARA. The examination is degraded by streak artifact from the arms which coul d not be elevated above the chest. CT DOSE: 2429.5 mGy.cm FINDINGS: Thyroid: Imaged portions of the thyroid gland are normal in size and attenuation. Thoracic aorta: No intramural hematoma is seen on the unenhanced series. There is mild fibrotic calci fication of the thoracic aorta, which is normal in caliber and demonstrates standard 3-vessel arch an atomy. No dissection is seen. The arch vessels are widely patent. Pulmonary vasculature: The pulmonary trunk is normal in caliber. There are no filling defects identif ied in the main, lobar, or segmental pulmonary vessels to indicate pulmonary embolus. Heart: The heart is top normal in size and without pericardial effusion. There are coronary artery ca lcifications. Lungs and pleural spaces: There is no airspace consolidation or pleural effusion. Scarring/atelectasi s is noted at the lung bases. The trachea and central airways are clear. There are scattered calcifie d granulomas. Mild diffuse peribronchial thickening suggests bronchitis/reactive airway disease. Mediastinum: Prominent mediastinal lymph nodes measure up to 9 mm short axis. Anita: Prominent hilar nodes measure up to 11 mm short axis. Axillae: There is no axillary lymphadenopathy. Upper abdomen: There is a small hiatal hernia. Cholecystectomy clips are noted. Skeletal structures: The skeletal structures are osteopenic. Mild degenerative change is noted in the thoracic spine. No lytic or blastic bony lesions are seen. IMPRESSION: 1. Unremarkable CT angiogram of the thoracic aorta. 2. There is no evidence of pulmonary embolus in the main, lobar, or segmental pulmonary arteries. 3. There is no airspace consolidation or pleural effusion. 4. Diffuse peribronchial thickening suggests bronchitis/reactive airway disease. Correlate clinically . 5. Prominent mediastinal and hilar lymph nodes are nonspecific and may be reactive. 6. Additional findings as above. ACT 112: Negative or not required by law. Electronically signed by: Benton Schreiber M.D. 09/01/2023 7:15 PM
[2023-09-01 19:26] LABS: ANTI-Xa, UFH(UnfractionatedHep < 0.10 IU/ml (0.3-0.7)
[2023-09-01] MEDS: ATORVASTATIN 40 MG TAB PO SCH (19:40)
[2023-09-02 01:54] LABS: ANTI-Xa, UFH(UnfractionatedHep 0.24 IU/ml (0.3-0.7)
[2023-09-02] MEDS: LEVOTHYROXINE SODIUM 112 MCG TABLET PO SCH (06:23)
[2023-09-02 06:35] LABS: Basophils # (auto) 0.04 K/uL (0.00-0.20); Basophils % (auto) 0.4 %; Eosinophils # (auto) 0.28 K/uL (0.00-0.50); Eosinophils % (auto) 2.9 %; Hematocrit (blood only) 36.4 % (42.0-52.0); Hemoglobin 12.5 g/dl (14.0-18.0); Immature Granulocytes # (auto) 0.03 K/uL (0.01-0.20); Immature Granulocytes % (auto) 0.3 %; Lymphocytes # (auto) 2.25 K/uL (1.20-3.40); Lymphocytes % (auto) 23.3 %; Mean Corpuscular Hgb Conc 34.3 g/dL (32.0-36.0); Mean Corpuscular Volume 87.3 fL (80.0-100.0); Mean Platelet Volume 10.3 fL (9.4-12.4); Monocytes # (auto) 0.74 K/uL (0.11-0.59); Monocytes % (auto) 7.7 %; Neutrophils % (auto) 65.4 %; Platelet Count 156 K/uL (130-400); RDW Coefficient of Variation 12.9 % (11.5-14.5); RDW Standard Deviation 41.1 fL (36.4-46.3); Red Blood Count 4.17 M/uL (4.70-6.10); White Blood Count 9.64 K/ul (4.8-10.8)
[2023-09-02 06:58] LABS: INR 1.1 (0.9-1.1); Prothrombin Time 11.6 Seconds (9.0-12.0)
[2023-09-02 06:59] LABS: Albumin Globulin Ratio 1.5 (0.9-2); Albumin Level 3.5 gm/dl (3.4-5.0); BUN Creatinine Ratio 14.4 (10-20); Bilirubin,Total 0.8 mg/dl (0.2-1.0); Calcium 8.8 mg/dl (8.6-10.3); Chol HDL Ratio 2.8 (0-5); Creatinine Clr Calc Pharmacy 72.7 ml/min; Est GFR (African American) 88.8 ml/min; Est GFR (Non-African American) 76.6 ml/min; Globulin 2.4 gm/dl (2.5-4.0); Magnesium 1.8 mg/dl (1.7-2.4); Potassium 3.9 mmol/L (3.5-5.1); Total Protein 5.9 gm/dl (6.0-8.3)
[2023-09-02 07:29] LABS: Estimated Average Glucose 123 mg/dl; Hemoglobin A1C 5.9 % (4.5-5.6)
[2023-09-02] MEDS: ARTIFICIAL TEARS OP SCH (08:40)
[2023-09-02 08:41] LABS: ANTI-Xa, UFH(UnfractionatedHep 0.28 IU/ml (0.3-0.7)
[2023-09-02] MEDS: ASPIRIN 81 MG ECTAB PO SCH (08:41)
[2023-09-02] MEDS: LORATADINE 10 MG TAB PO SCH (08:41)
[2023-09-02] MEDS: CLOPIDOGREL BISULFATE 75 MG TAB PO SCH (08:41)
--- NOTE | 2023-09-02 12:40 | Hospitalist Progress Note ---
Date of Service September 02, 2023 Assessment & Plan (1) NSTEMI (non-ST elevated myocardial infarction): Plan: 73 y/o man presented to the ED with acute onset of left arm pain with radiation to the left chest/substernal region around 0830 this am while cleaning his home (vacuuming) HTN, hyperlipidemia and 25 pack year smoking hx initial ECG on arrival with minimal ST depressions in the anterior and AVL leads. Treated with ASA, SL NTG Repeat ECG after initial tx in the ED with improved ST depressions Cardiology was consulted, coronary angiogram 08/31 with minimal coronary artery disease TTE with normal EF, no rwma's, no significant valvular disease Trop peaked at 10,430 ---> 7400 this am -unclear what this event was, per assembly mechanic there's a small possibility of a distal coronary event. 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 -follow up R hand ultrasound, concern for decreased perfusion at radial access site with intact pulse -follow up in cardiology clinic (2) Chest pain: Plan: -related to his NSTEMI versus musculoskeletal (vacuuming) -CTA neg for PE or dissection (3) HTN (hypertension): Plan: resume spironolactone/HCTZ for now (4) Hypothyroidism: Plan: -Continue levothyroxine Admission and Anticipated Discharge Date Admission Date: September 01, 2023 Subjective feels good this am, no chest pain except tiny focal area in lower precordium which is mild no dyspnea no leg swelling Physical Exam 2 Physical Exam: PHYSICAL EXAMINATION Last 24h vital signs reviewed, see documentation in flowsheet General: comfortable appearing, no distress HEENT: Normocephalic, atraumatic, pupils round and equal, sclerae anicteric, no conjunctival injection, moist mucus membranes Lungs: Normal respiratory effort. Clear to auscultation bilaterally. No RRW chest wall nontender to palpation Heart: Regular rate and rhythm, no murmurs. No JVD Abdomen: Soft, nontender, nondistended. Bowel sounds present. Extremities: Warm, dry, well-perfused. No extremity edema. Neuro: Alert and oriented x 4, face symmetric, moves 4 extremities well Psych: Normal affect and behavior Results & Data Results & Data Vital Signs (Past 12 Hours) Vital Signs Temp Pulse Pulse Pulse Resp BP Pulse Ox 09/02/23 11:51 36.9 C 80 18 100/62 100 09/02/23 09:00 50 L 09/02/23 07:52 09/02/23 07:43 36.8 C 69 20 100/60 95 09/02/23 06:21 47 L 107/58 L 09/02/23 02:33 36.5 C 43 L 18 108/62 95 O2 Del Method 09/02/23 11:51 Room Air 09/02/23 09:00 09/02/23 07:52 Room Air 09/02/23 07:43 Room Air 09/02/23 06:21 09/02/23 02:33 Room Air Laboratory Results 09/02/23 05:50 09/02/23 05:54 PG Care Time/CCT Total # of Minutes Spent Total Time Spent with Patient: Total time spent is greater than 50% in coordination of care (as documented) at patient's floor/unit and/or counseling patient: Coding Level of Care Code 75142 SUB INP/OBS CARE 2/35MIN Diagnoses NSTEMI (non-ST elevated myocardial infarction) I21.4 Chest pain R07.9 HTN (hypertension) I10 Hypothyroidism E03.9
[2023-09-02] MEDS: ACETAMINOPHEN 325 MG TAB PO PRN (13:26)
--- NOTE | 2023-09-02 16:23 | Cardiology Progress Note ---
Date of Service September 02, 2023 Assessment & Plan (1) NSTEMI (non-ST elevated myocardial infarction): (2) Chest pain: (3) HTN (hypertension): (4) Sinus bradycardia: Plan 1. NSTEMI: Unclear etiology. Very small possibility of a very distal coronary event. No aortic pathology. No PE. I think we will continue him on heparin for another few hours. This can be discontinued in the morning. Continue him on dual anti-platelet therapy. 2. Chest pain: Again, unclear etiology. He believes this could be musculoskeletal and did occur while he was vacuuming with the left arm. 3. Sinus bradycardia: Longstanding a well documented. No overt symptoms. 4. Right hand. He does seem to have some element of reduced perfusion of the right hand relative to the left. However, there is a palpable radial pulse distal to the access site. Possibly an embolic event. No particular ischemia noted. Will perform an ultrasound examination. Continue heparin tonight. I think tomorrow morning the heparin infusion can be discontinued. He should go home on dual anti-platelet therapy with aspirin Plavix. Beta-stacey relatively contraindicated given his bradycardia. I will arrange for follow-up in our clinic. Admission and Anticipated Discharge Date Admission Date: September 01, 2023 Subjective This afternoon the patient reported headache. The left arm symptoms which prompted his admission are still there but improved. No difficulty moving the arm. He did report a cold right thumb earlier today. This is also improved. Review of Systems Review of Systems: Per HPI Physical Exam Physical Exam: The patient is alert and oriented. Mood and affect appeared normal. He answered all questions appropriately. HEENT: Pupils are equal and reactive to light and accommodation. Extraocular movements are intact. The sclerae are anicteric. Neuro: Cranial nerves intact Lungs: Clear to auscultation bilaterally. He has good air movement without use of accessory muscles. No rales wheezes or rhonchi. Chest: No tenderness to palpation. Cardiac: Heart demonstrates a regular rate and rhythm. Normal S1 and S2. No murmurs on examination. Pulses: Palpable radial pulses bilaterally. Right hand slightly cooler than the left. Mildly delayed capillary refill. Good movement though. Normal sensation. No swelling in the right forearm. Extremities: There was no evidence of hypoperfusion. There is no cyanosis or clubbing. There is no edema. Skin: I did not appreciate any rashes on examination today. ENMT: Mallampati Class: III Respiratory: normal respiratory effort Cardiovascular: Rate/Rhythm: regular rhythm and + bradycardic Results & Data Vital Signs (Past 12 Hours) Vital Signs Temp Pulse Pulse Resp BP Pulse Ox O2 Del Method 09/02/23 15:36 36.2 C L 53 L 19 110/66 93 Room Air 09/02/23 11:51 36.9 C 80 18 100/62 100 Room Air 09/02/23 09:00 50 L 09/02/23 07:52 Room Air 09/02/23 07:43 36.8 C 69 20 100/60 95 Room Air 09/02/23 06:21 47 L 107/58 L Laboratory Results Abnormal Lab Results 09/01/23 09/02/23 09/02/23 18:31 00:48 05:50 WBC 9.64 RBC 4.17 L Hgb 12.5 L Hct 36.4 L MCV 87.3 MCH 30.0 MCHC 34.3 RDW Std Deviation 41.1 RDW Coeff of Leroy 12.9 Plt Count 156 MPV 10.3 Immature Gran % (Auto) 0.3 Neut % (Auto) 65.4 Lymph % (Auto) 23.3 [place] % (Auto) 7.7 Eos % (Auto) 2.9 Baso % (Auto) 0.4 Neut # (Auto) 6.30 Lymph # (Auto) 2.25 [place] # (Auto) 0.74 H Eos # (Auto) 0.28 Baso # (Auto) 0.04 Immature Gran # (Auto) 0.03 PT INR Heparin Anti-Xa, Unfract < 0.10 L 0.24 L Sodium Potassium Chloride Carbon Dioxide Anion Gap BUN Creatinine Est Cr Clr Drug Dosing Est GFR ( Amer) Est GFR (Non-Af Amer) BUN/Creatinine Ratio Glucose Estimat Average Glucose Hemoglobin A1c Calcium Magnesium Total Bilirubin AST ALT Alkaline Phosphatase Troponin I High Sens 88966.9 H* D 42164.5 H* Total Protein Albumin Globulin Albumin/Globulin Ratio Triglycerides Cholesterol LDL Cholesterol, Calc VLDL Cholesterol, Calc HDL Cholesterol Cholesterol/HDL Ratio 09/02/23 09/02/23 09/02/23 05:54 07:57 15:11 WBC RBC Hgb Hct MCV MCH MCHC RDW Std Deviation RDW Coeff of Leroy Plt Count MPV Immature Gran % (Auto) Neut % (Auto) Lymph % (Auto) [place] % (Auto) Eos % (Auto) Baso % (Auto) Neut # (Auto) Lymph # (Auto) [place] # (Auto) Eos # (Auto) Baso # (Auto) Immature Gran # (Auto) PT 11.6 INR 1.1 Heparin Anti-Xa, Unfract 0.28 L 0.30 Sodium 141 Potassium 3.9 Chloride 105 Carbon Dioxide 31 Anion Gap 5 BUN 14 Creatinine 0.97 Est Cr Clr Drug Dosing 72.7 Est GFR ( Amer) 88.8 Est GFR (Non-Af Amer) 76.6 BUN/Creatinine Ratio 14.4 Glucose 113 H Estimat Average Glucose 123 Hemoglobin A1c 5.9 H Calcium 8.8 Magnesium 1.8 Total Bilirubin 0.8 AST 38 ALT 20 Alkaline Phosphatase 49 Troponin I High Sens 7480.9 H* D Total Protein 5.9 L Albumin 3.5 Globulin 2.4 L Albumin/Globulin Ratio 1.5 Triglycerides 121 Cholesterol 85 LDL Cholesterol, Calc 31 VLDL Cholesterol, Calc 24 HDL Cholesterol 30 Cholesterol/HDL Ratio 2.8 Diagnostic Findings Cardiac catheterization performed yesterday did not reveal any acute coronary syndrome or occlusions. Left dominant system. Possible embolic phenomenon or significant disease involving a distal OM 2. PG Care Time/CCT Total # of Minutes Spent Total Time Spent with Patient: Total time spent is greater than 50% in coordination of care (as documented) at patient's floor/unit and/or counseling patient: Coding Level of Care Code 83178 SUB INP/OBS CARE 2/35MIN Diagnoses NSTEMI (non-ST elevated myocardial infarction) I21.4 Chest pain R07.9 HTN (hypertension) I10 Sinus bradycardia R00.1
[2023-09-03 05:38] LABS: Basophils # (auto) 0.04 K/uL (0.00-0.20); Basophils % (auto) 0.5 %; Eosinophils # (auto) 0.31 K/uL (0.00-0.50); Eosinophils % (auto) 3.5 %; Hematocrit (blood only) 38.3 % (42.0-52.0); Hemoglobin 13.3 g/dl (14.0-18.0); Immature Granulocytes # (auto) 0.02 K/uL (0.01-0.20); Immature Granulocytes % (auto) 0.2 %; Lymphocytes % (auto) 34.3 %; Mean Corpuscular Hemoglobin 29.7 pg (25.0-34.0); Mean Corpuscular Hgb Conc 34.7 g/dL (32.0-36.0); Mean Corpuscular Volume 85.5 fL (80.0-100.0); Mean Platelet Volume 10.3 fL (9.4-12.4); Monocytes # (auto) 0.86 K/uL (0.11-0.59); Monocytes % (auto) 9.8 %; Neutrophils # (auto) 4.51 K/uL (1.40-6.50); Neutrophils % (auto) 51.7 %; Platelet Count 155 K/uL (130-400); RDW Coefficient of Variation 12.7 % (11.5-14.5); RDW Standard Deviation 39.1 fL (36.4-46.3); Red Blood Count 4.48 M/uL (4.70-6.10); White Blood Count 8.74 K/ul (4.8-10.8)
[2023-09-03 05:52] LABS: Albumin Globulin Ratio 1.5 (0.9-2); Albumin Level 3.6 gm/dl (3.4-5.0); Bilirubin,Total 0.7 mg/dl (0.2-1.0); Calcium 8.6 mg/dl (8.6-10.3); Creatinine Clr Calc Pharmacy 70.5 ml/min; Est GFR (African American) 85.6 ml/min; Est GFR (Non-African American) 73.8 ml/min; Globulin 2.4 gm/dl (2.5-4.0); Magnesium 1.9 mg/dl (1.7-2.4); Potassium 3.5 mmol/L (3.5-5.1)
[2023-09-03 06:14] LABS: ANTI-Xa, UFH(UnfractionatedHep 0.31 IU/ml (0.3-0.7)
--- NOTE | 2023-09-03 12:54 | Ultrasound Report ---
ULTRASOUND RIGHT UPPER EXTREMITY ARTERIAL CLINICAL HISTORY: Cold right hand. COMPARISON STUDY: No priors. TECHNIQUE: Real-time grayscale and color Doppler sonography of the upper extremity arteries is perfor med. FINDINGS: No significant atherosclerotic plaque is identified. The right common carotid artery is pat ent and shows normal arterial waveforms. Velocities in the common carotid artery measure up to 72 cm/ s. The right vertebral artery is patent and shows antegrade flow, with velocities measuring up to 46 cm/s. The subclavian artery is patent with velocities measuring up to 72 cm/s. The axillary and brach ial arteries are patent and show normal arterial waveforms. Velocities in the axillary artery measure up to 67 cm/s, and velocities in the brachial artery measure up to 88 cm/s. The radial and ulnar art eries are patent and show normal arterial waveforms. Velocities in the radial artery measure up to 83 cm/s and velocities in the ulnar artery measure up to 42 cm/s. The arteries of the hand appear paten t. IMPRESSION: Normal examination. Dictated: 09/03/2023 10:04 AM Transcribed: 09/03/2023 12:07 PM Connor [id number] [email or web address] Electronically signed by: Benton Schreiber M.D. 09/03/2023 12:52 PM
--- NOTE | 2023-09-03 18:56 | Discharge Summary ---
Date of Service September 03, 2023 Admission HPI Per Admitting Provider Ryne is a 73 year old male with a PMH significant for HTN, Hyperlipidemia, previous tobacco abuse, Guillain [place] Syndrome who presented to the [facility] ED on 09/01/23 with complaints of left chest/shoulder pain which began around 0830 this morning. On arrival to the ED the patient was noted to be hypertensive at 162/95 but was otherwise stable. Labs were significant for an initial high sen trop of 85. ECG shows mild ST segment depressions in the anterior leads. Prior to admission the patient was give 324 mg Aspirin and 2 doses of SL nitroglycerin. At the time of the exam the patient was sitting in bed in no acute distress with his bedside. He states that they were cleaning their house this am around 0830 when he developed sudden onset of left UE pain which radiated to the left chest and substernal region. Describes the pain as burning and an 8/10 when it initially started. Pain is currently a 2-3/10 after the second dose of nitroglycerin. Smoked 1PPD for 25 years, quit approximately 30 years ago. Denies alcohol use. Denies previous hx of heart disease but has significant Cardiac hx on both sides of his family. Does not believe that anyone in his family has passes from heart disease before the age of 50. Denies recent fever, chills, SOB, cough, hemoptysis, nausea, vomiting, abd pain, diarrhea, dysuria, hematuria, melena, LE swelling, and recent trauma. Denies previous hx of major bleeding. Is a full code, is his POA. Principal Diagnosis NSTEMI, minimal CAD on angiogram Discharge Exam PHYSICAL EXAMINATION Last 24h vital signs reviewed, see documentation in flowsheet General: comfortable appearing, no distress, sitting in bed Exam unchanged 09/02: HEENT: Normocephalic, atraumatic, pupils round and equal, sclerae anicteric, no conjunctival injection, moist mucus membranes Lungs: Normal respiratory effort. Clear to auscultation bilaterally. No RRW Heart: Regular rate and rhythm, no murmurs. No JVD Abdomen: Soft, nontender, nondistended. Bowel sounds present. Extremities: Warm, dry, well-perfused. No extremity edema. R hand wwp, R wrist radial pulse is strong Neuro: Alert and oriented x 4, face symmetric, moves 4 extremities well Psych: Normal affect and behavior Discharge Data Allergies Allergy/AdvReac Type Severity Reaction Status Date / Time tapentadol AdvReac Unknown feels hot Verified 01/23/20 08:37 Consultations 09/01/23 11:14 ED Decision to Admit Stat 09/01/23 11:31 Consult Cardiology Stat Procedures Performed Operation Date: 09/01/23 14:00 Actual Procedures s Cineradiography w/Routine Exam - Toribio Marques MD p Cath, Left with Cors and Vent - Toribio Marques MD Ordered Studies 09/01/23 13:26 CL Cath Imgs for PACS use only Routine 09/01/23 15:55 CT head/brain wo con Stat 09/01/23 16:02 CT angio chest dissec wo/w con Stat 09/03/23 16:12 US arterial duplex UE RT Routine 09/03/23 05:08 09/03/23 05:08 Hospital Course (1) NSTEMI (non-ST elevated myocardial infarction): 73 y/o man presented to the ED with acute onset of left arm pain with radiation to the left chest/substernal region around 0830 this am while cleaning his home (vacuuming) HTN, hyperlipidemia and 25 pack year smoking hx initial ECG on arrival with minimal ST depressions in the anterior and AVL leads. Treated with ASA, SL NTG Repeat ECG after initial tx in the ED with improved ST depressions Cardiology was consulted, coronary angiogram 08/31 with minimal coronary artery disease TTE with normal EF, no rwma's, no significant valvular disease Trop peaked at 10,430 ---> 7400 -unclear what this event was, per brick dropper there's a small possibility of a distal coronary event. Chest CTA was negative for PE and aortic dissection -treated with heparin drip in hospital -continue DAPT - ASA and plavix -no B-stacey with longstanding asymptomatic bradycardia in 40s -continue atorvastatin (LDL 31 and HDL 30 on his usual dose) -A1c 5.9 - counseled lifestyle measures - discussed with Ryne and his 09/02 -R hand ultrasound, concern for decreased perfusion at radial access site with intact pulse - study was normal 09/02 -follow up in cardiology clinic (2) Chest pain: -related to his NSTEMI versus musculoskeletal (vacuuming) -CTA neg for PE or dissection (3) HTN (hypertension): resume spironolactone/HCTZ (4) Hypothyroidism: -Continue levothyroxine Plan Follow up in primary care for impaired fasting glucose With cardiology Total Time Total Time Spent Total Time Spent (In Minutes): I personally spent: 40 minutes today on clinical care activities including: reviewing chart notes and vital signs reviewing labs reviewing studies discussion with bedside RN examining and counseling the patient counseling the patient's family writing orders, discharge instruction documentation Discharge Plan Discharge Items Patient Disposition: Home - Self-Care Reason For Visit: CHEST PAIN, ELEVATED TROP Discharge Diagnosis: NSTEMI Activity: Resume your previous activity Non-emergency contact: Primary Care Provider and Buyer Call non-emergency contact if: you have any medication questions and your symptoms worsen Follow-up/Referrals: Toribio Marques MD [Physician] - PCP,GITA [Primary Care Provider] - Diet: Heart Healthy Sherri Attending Provider Instructions: You had a mild heart attack - Non-ST elevation NE We are not sure why this happened because you only had minimal coronary artery disease on angiogram It could have been caused by a very small heart artery closing off (too small to be seen on angiogram) The brick dropper Dr. Marques recommended continuing baby aspirin every day and adding medication called Plavix (clopidogrel) to help prevent future heart attacks Your cholesterol is really low on your current atorvastatin so I did not change that Plavix (clopidogrel) has rare but serious side effect of low platelets / rash / kidney injury. If you develop new/unusual worrisome rash (usually both legs or full body), abnormal bleeding, or decrease in urine output call your doctor. Your blood tests show that your blood sugar has been chronically mildly elevated (Hemoglobin A1c of 5.9%) - this puts you at increased risk of diabetes in the future. This can be reversed by increasing your exercise and changing your diet - avoid sugar and starcy foods (like "white" carbohydrates), replace with vegetables, whole grains, lean meats and fish Follow up in primary care with Dr. Greenberg and in cardiology clinic with Dr. Marques or his colleagues Sherri Car Conditioner Provider Instructions: ACTIVITY RECOMMENDATIONS: Excess manipulation of the wrist should be avoided for the next 24-48 hours. * No lifting over 2 pounds (approximately a 1/2 gallon of milk) with the utilized arm for 24 hours. * No strenuous activity such as bowling or tennis for 3 days. * Keep the site of the procedure covered with a bandage for 24 hours. *You may shower the day after the procedure. Do not take a tub bath or submerge the puncture site in water for the next 3 days. *Do not operate any motorized equipment for 3 days. SPECIAL CARE INSTRUCTIONS: The site may be slightly bruised and sore following your procedure. Should any of the following occur, contact the Dr. who performed your procedure. 1. Redness/inflammation, swelling, chills, or fever, or colored drainage at procedure site within 3-7 days after your procedure. 2. Coldness, discoloration, ongoing numbness, severe pain, or swelling. Expect mild tingling of hand and tenderness at the puncture site for up to three days. If this persists beyond three days, or other symptoms develop, notify the Dr. who performed your procedure. BLEEDING: If the procedure site on your wrist begins to bleed, do not panic 1. Place 1 or 2 fingers firmly just slightly above the insertion site to stop the bleeding. You may be able to feel your pulse as you hold pressure. 2. Lift your finger after 5 minutes to see if the bleeding has stopped. 3. Once the bleeding has stopped, gently wipe the wrist area clean with a bandage. * If the bleeding from your wrist does not stop after 10 minutes, or if there is a large amount of bleeding or spurting, call 911 (do not drive yourself to the hospital). SKIN IRRITATION: * You may experience some redness and/or swelling in the area where radiation was administered. If any skin irritation occurs, please contact your family physician. FOLLOW UP VISIT: Keep any scheduled doctor appointments. Pending Studies at Discharge: No Stand-Alone Forms: [facility], Smoking Cessation Medications and DC Order Prescriptions: New clopidogrel 75 mg Tablet 75 mg PO QAM Qty: 30 1RF Continued albuterol sulfate [ProAir HFA] 90 mcg/actuation HFA aerosol inhaler 2 puff inhalation QID PRN (Reason: SOB or wheezing) loratadine 10 mg capsule 10 mg PO DAILY Rx Instructions: Unable to verify OTC meds at this date/time Systane Balance 0.6 % drops 1 drp ophthalmic (eye) DAILY Rx Instructions: Unable to verify OTC meds at this date/time cholecalciferol (vitamin D3) [Vitamin D3] 1,000 unit Capsule 1,000 unit PO DAILY Rx Instructions: Unable to verify OTC meds at this date/time aspirin 81 mg Tablet,Delayed Release (Dr/Ec) 81 mg PO DAILY Rx Instructions: Unable to verify OTC meds at this date/time atorvastatin 20 mg tablet 20 mg PO HS spironolacton-hydrochlorothiaz 25-25 mg tablet 0.5 tab PO DAILY triamcinolone acetonide 0.5 % ointment 1 applic TOPICAL BID levothyroxine 112 mcg tablet 112 mcg PO DAILYBB Discharge Orders: Discharge Order (Routine); Ordered 09/03/23 Ordered By: Emma Nieto Admission Data Admit Date/Time: 09/01/23 11:26 Attending Provider: Emma Nieto Admit Provider: Rakesh Mccormick Primary Care Provider: PCP,NO Other Providers: Rakesh Mccormick; Denny Leone Other Interventions: Discharge Summary Assessment (RN) Last Done: 09/03/23 13:29 Coding Level of Care Code 16011 INP/OBS DISCH >30 MIN Diagnoses NSTEMI (non-ST elevated myocardial infarction) I21.4 Chest pain R07.9 HTN (hypertension) I10 Hypothyroidism E03.9
== END 2023-09-03 13:32 | disposition home or self-care (01) | DRG 282 ==
LOC: ED 09:30 → SUATTDRO 11:26 → 4W 11:26